=== PATIENT | female | born 1955 | race Caucasian/White ===

== ENCOUNTER → 2020-06-27 | Day surgery (SDC) | payer BC ==
--- NOTE | 2020-06-24 12:15 | PCM.SN.2 ---
- Free Text/Narrative Note: Right selective femoral nerve block at the adductor canal for post-procedure pain control under US guidance requested by Dr. Yepez. Time Out: 1115 Start: 1115 End: 112 Chart reviewed. Consent signed. Questions answered. Appropriate monitors applied. Time out performed. Right mid-shaft femur identified with ultrasound, scanning medially of femur, the femoral artery in the adductor canal visualized, and the femoral nerve located laterally to the artery. The skin was prepped lateral to the ultrasound probe with chlorahexadine times two. The 21ga 4 insulated block needle was inserted under direct ultrasound guidance into the adductor canal. 25mL of 0.5% ropivacaine with 1:200,000 epinephrine was injected circumferentially around the nerve with intermittent negative aspiration noted. Patient tolerated the procedure well. Sterile technique noted along with sterile gloves, mask, and sterile probe cover. See picture on progress note and vital signs on nurses notes. Block completed in PACU. Mukesh Ramirez CRNA
[~2020-06-27] MED LIST: Acetaminophen 325 MG Tab PO SCH; Cyclobenzaprine 10 MG Tab PO SCH; EPINEPHrine 1 MG/ML SDV ONE; Ketorolac 15 MG/ML SDV ONE; Lactated Ringers 1,000 ML IV SCH; Lactated Ringers 1,000 ML ONE; Lidocaine 1% 4 ML ONE; Lidocaine 1%/Sod Bicarbonate in NS 8.4% 1 ML Syringe IDERM PRN; Midazolam 1 MG/ML 2 ML SDV ONE; Morphine 8 MG, EPINEPHrine 0.3 MG, Cefuroxime 750 MG, Ketorolac 30 MG, Sodium Chloride ... ONE; Morphine 8 MG, EPINEPHrine 0.3 MG, Cefuroxime 750 MG, Ketorolac 30 MG, Sodium Chloride ... PRN; Ondansetron 4 MG/2 ML SDV IVPUSH PRN; Ondansetron 4 MG/2 ML SDV ONE; Pregabalin 25 MG Cap PO SCH; Propofol 200 MG/20 ML SDV ONE; Ropivacaine 0.5% 5 MG/ML 30 ML SDV ONE; Sodium Chloride 0.9% 10 ML Syringe FLUSH PRN; Triamcinolone Acetonide 40 MG/ML 1 ML SDV ONE; Vancomycin 1 GM SDV ONE; ceFAZolin 1 GM Vial ONE; fentaNYL 100 MCG/2 ML SDV ONE; oxyCODONE 5 MG Tab PO SCH; oxyCODONE ER 10 MG TAB.ER PO SCH
--- NOTE | 2020-06-27 07:21 | PCM.PREANE ---
Preanesthetic Assessment - Anesthesia/Transfusion/Family Hx Anesthesia History: Prior Anesthesia Without Reaction Family History of Anesthesia Reaction: No Transfusion History: No Prior Transfusion(s) - Review of Systems General: No Symptoms Pulmonary: No Symptoms Cardiovascular: No Symptoms Gastrointestinal: No Symptoms Neurological: No Symptoms Other: Reports: None - Physical Assessment NPO Status Date: 06/26/20 NPO Status Time: 20:00 Vital Signs: Last Vital Signs Temp 36.1 C 06/27/20 06:45 Pulse 65 06/27/20 06:45 Resp 16 06/27/20 06:45 BP 113/77 06/27/20 06:45 Pulse Ox 97 06/27/20 06:45 Height: 1.6 m Weight: 89.358 kg ASA Class: 3 Airway Class: Mallampati = 2 Dentition: Reports: Dentures (upper) Thyro-Mental Finger Breadths: 3 Mouth Opening Finger Breadths: 3 ROM/Head Extension: Full Lungs: Clear to Auscultation, Normal Respiratory Effort Cardiovascular: Irregular Rhythm - Lab Values: Laboratory Last Values MRSA (PCR) Negative 06/15/20 12:24 - Allergies Allergies/Adverse Reactions: Allergies Allergy/AdvReac Type Severity Reaction Status Date / Time codeine Allergy Itching Verified 06/24/20 16:43 Lmhkhgu-Gwc-Fkr Reductase Allergy Other Verified 06/24/20 16:43 Inhibitor - Anesthesia Plan Beta Anthony: Metoprolol Med Last Dose Date: 06/26/20 Med Last Dose Time: 19:00 - Acknowledgements Anesthesia Type Planned: Spinal Pt an Appropriate Candidate for the Planned Anesthesia: Yes Alternatives and Risks of Anesthesia Discussed w Pt/Guardian: Yes Pt/Guardian Understands and Agrees with Anesthesia Plan: Yes PreAnesthesia Questionnaire HEENT History: Reports: Impaired Vision, Other (See Below) Other HEENT History: wears glasses, has dentures Cardiovascular History: Reports: Afib, CAD, [place], Other (See Below) Other Cardiovascular History: ventricular dystolic dysfunction, mitral regurgitation, SC--2010 Respiratory History: Reports: Other (See Below) Other Respiratory History: snoring Gastrointestinal History: Reports: Diverticulosis, GERD, Hemorrhoids Genitourinary History: Reports: None [employer] History: Reports: None Musculoskeletal History: Reports: Osteoporosis Neurological History: Reports: Other (See Below) Other Neuro History: near syncope Psychiatric History: Reports: None Endocrine/Metabolic History: Reports: Obesity/BMI 30+, Vitamin D Deficiency, Other (See Below) Other Endocrine/Metabolic History: hyperparathyroidism Hematologic History: Reports: Iron Deficiency Immunologic History: Reports: None Oncologic (Cancer) History: Reports: None Dermatologic History: Reports: Other (See Below) Other Dermatologic History: rash to left foot - Past Surgical History Head Surgeries/Procedures: Reports: None HEENT Surgical History: Reports: Cataract Surgery, Tonsillectomy Cardiovascular Surgical History: Reports: None Respiratory Surgical History: Reports: None GI Surgical History: Reports: Bariatric Procedure, Colonoscopy Female Surgical History: Reports: Tubal Ligation Male Surgical History: Reports: None Endocrine Surgical History: Reports: None Neurological Surgical History: Reports: None Musculoskeletal Surgical History: Reports: Shoulder Surgery, Other (See Below) Other Musculoskeletal Surgeries/Procedures:: right rotator cuff repair Oncologic Surgical History: Reports: None Dermatological Surgical History: Reports: None - SUBSTANCE USE Tobacco Use Status *Q: Former Tobacco User Recreational Drug Use History: No - HOME MEDS Home Medications: Home Meds Alendronate Sodium [Fosamax] 70 mg PO SA 06/24/20 [History] Calcium Carbonate [Calcium] 600 mg PO DAILY 06/24/20 [History] Cholecalciferol (Vitamin D3) [Vitamin D3] 5,000 unit PO DAILY 06/24/20 [History] Ferrous Sulfate [Iron] 325 mg PO BID 06/24/20 [History] Furosemide [Lasix] 20 mg PO DAILY PRN 06/24/20 [History] Ipratropium [Atrovent 0.03% Nasal [place]] 1 dose SWATI DAILY 06/24/20 [History] Metoprolol Succinate 100 mg PO BID 06/24/20 [History] Multivitamin 1 tab PO DAILY 06/24/20 [History] Rivaroxaban [Xarelto] 20 mg PO DAILY 06/24/20 [History] Cyclobenzaprine [Flexeril] 10 mg PO BID PRN #20 tab 06/27/20 [Rx] oxyCODONE 5 - 10 mg PO Q4H PRN #60 tab 06/27/20 [Rx] traMADol [Ultram] 50 - 100 mg PO DAILY PRN #0 06/27/20 [Rx] - CURRENT (IN HOUSE) MEDS Current Meds: Current Medications Acetaminophen (Tylenol) 975 mg PO ONETIME AJ Stop: 06/27/20 12:00 Last Admin: 06/27/20 07:07 Dose: 975 mg Documented by: Morphine Sulfate 8 mg/Epinephrine HCl 0.3 mg/Cefuroxime Sodium 750 mg/Ketorolac Tromethamine 30 mg/Sodium Chloride 7.9 ml 0 mg .XX ASDIRECTED ONE Stop: 06/27/20 09:01 Lactated Ringer's (Ringers, Lactated) 1,000 mls @ 125 mls/hr IV ASDIRECTED AJ Stop: 06/27/20 23:00 Lidocaine/Sodium Bicarbonate (Buffered Lidocaine 1% In Ns 8.4%) 0.25 ml IDERM ONETIME PRN PRN Reason: Prior to IV Start Stop: 06/27/20 18:00 Oxycodone HCl (Oxycontin) 10 mg PO ONETIME AJ Stop: 06/27/20 12:00 Last Admin: 06/27/20 07:06 Dose: 10 mg Documented by: Pregabalin (Lyrica) 50 mg PO ONETIME AJ Stop: 06/27/20 12:00 Last Admin: 06/27/20 07:07 Dose: 50 mg Documented by: Sodium Chloride (Saline Flush) 10 ml FLUSH ASDIRECTED PRN PRN Reason: Keep Vein Open Stop: 06/27/20 18:00 Discontinued Medications Cefazolin Sodium (Ancef) Confirm Administered Dose 2 gm .ROUTE .STK-MED ONE Stop: 06/27/20 07:07 Epinephrine HCl (Adrenalin) Confirm Administered Dose 1 mg .ROUTE .STK-MED ONE Stop: 06/27/20 05:25 Fentanyl (Sublimaze) Confirm Administered Dose 100 mcg .ROUTE .STK-MED ONE Stop: 06/27/20 07:03 Lidocaine HCl (Xylocaine-Mpf 1%) Confirm Administered Dose 4 mls @ as directed .ROUTE .STK-MED ONE Stop: 06/27/20 07:02 Midazolam HCl (Versed 1 Mg/Ml) Confirm Administered Dose 2 mg .ROUTE .STK-MED ONE Stop: 06/27/20 07:03 Propofol (Diprivan 20 Ml) Confirm Administered Dose 200 mg .ROUTE .STK-MED ONE Stop: 06/27/20 07:02 Ropivacaine (Naropin 0.5%) Confirm Administered Dose 30 ml .ROUTE .STK-MED ONE Stop: 06/27/20 05:25
[2020-06-27] MEDS: Bupivacaine 0.25% 10 ML SDV ONE ×2 (09:35→10:18)
--- NOTE | 2020-06-27 10:26 | PCM.POSTAN ---
POST ANESTHESIA ASSESSMENT - MENTAL STATUS Mental Status: Alert, Oriented - VITAL SIGNS Vital Signs: Last Vital Signs Temp 36.1 C 06/27/20 06:45 Pulse 65 06/27/20 06:45 Resp 16 06/27/20 06:45 BP 113/77 06/27/20 06:45 Pulse Ox 97 06/27/20 06:45 - RESPIRATORY Respiratory Status: Respiratory Rate WNL, Airway Patent, O2 Saturation Stable - CARDIOVASCULAR CV Status: Pulse Rate WNL, Blood Pressure Stable - GASTROINTESTINAL GI Status: No Symptoms - PAIN Pain Score: 0 - POST OP HYDRATION Hydration Status: Adequate & Stable
[2020-06-27] MEDS: fentaNYL 100 MCG/2 ML SDV IVPUSH PRN ×2 (11:05→11:50)
--- NOTE | 2020-06-27 12:33 | PCM48HPAN ---
Post Anesthesia Note - EVALUATION WITHIN 48HRS OF ANESTHETIC Vital Signs in Normal Range: Yes Patient Participated in Evaluation: Yes Respiratory Function Stable: Yes Airway Patent: Yes Cardiovascular Function Stable: Yes Hydration Status Stable: Yes Pain Control Satisfactory: Yes Nausea and Vomiting Control Satisfactory: Yes Mental Status Recovered: Yes Vital Signs: Last Vital Signs Temp 35.9 C L 06/27/20 12:10 Pulse 79 06/27/20 12:10 Resp 16 06/27/20 12:10 BP 130/92 H 06/27/20 12:10 Pulse Ox 98 06/27/20 12:10
--- NOTE | 2020-07-05 15:34 | CR ---
PROCEDURE INFORMATION: Exam: XR Right Knee Exam date and time: 06/27/2020 10:19 AM Age: 65 years old Clinical indication: Device placement; Joint replacement hardware; Patient HX: Post op in pacu; Additional info: Prior images are not ours / we do not have a report on them TECHNIQUE: Imaging protocol: XR Right knee. Views: 1 or 2 views. COMPARISON: CR Bone Length Scanogram, Knee Standing AP Bi, Knee 3V Bi 05/17/2020 10:54 AM FINDINGS: Bones/joints: New right total knee arthroplasty. The components are normally aligned and there are no retained surgical instruments or acute fracture. Soft tissues: Expected adjacent soft tissue edema and gas. IMPRESSION: No evident complication following right total knee arthroplasty. Thank you for allowing us to participate in the care of your patient. Dictated and Authenticated by: Hima Delarosa MD 06/27/2020 1:56 PM Central Time ([place] & [place]) CONFIDENTIALITY STATEMENT This report is intended only for use by the referring physician, and only in accordance with law. If you received this in error, call [phone]. Page 1 of 1 MTDD
--- NOTE | 2020-07-05 16:57 | PCM.OPNOTE ---
- General Post-Op/Procedure Note Date of Surgery/Procedure: 06/27/20 Operative Procedure(s): right total knee arthroplasty with left knee corticosteriod injection Pre Op Diagnosis: bilateral knee osteoarthrosis Post-Op Diagnosis: Same Anesthesia Technique: Local, MAC, Spinal Primary Surgeon: Zach Yepez Anesthesia Provider: Maite Laurent Nutrition Partner: Urszula Grande Nutrition Partner: Leann Burnham EBL in mLs: 5 Complications: None Condition: Good Free Text/Narrative:: / 9mm 29x9
--- NOTE | 2020-07-05 17:24 | OR ---
DATE OF OPERATION: 06/27/2020 SURGEON: Zach Yepez MD OPERATION PERFORMED: Right total knee arthroplasty with left knee corticosteroid injection. PREOPERATIVE DIAGNOSIS: Bilateral knee osteoarthrosis. POSTOPERATIVE DIAGNOSIS: Bilateral knee osteoarthrosis. ANESTHESIA: Local MAC with spinal. ANESTHESIA PROVIDER: Maite Laurent CRNA ASSISTANTS: Urszula Grande PA-C, and Leann Burnham LPN ESTIMATED BLOOD LOSS: 5 mL. COMPLICATIONS: None. CONDITION: Stable. IMPLANTS: 1. Donny size 4 cemented PS femur. 2. [place] size 4 cemented [place] tibial base plate. 3. Donny size 4, 9 mm PS X3 polyethylene insert. 4. Donny size 29 x 9 mm cemented asymmetric patella. DESCRIPTION OF PROCEDURE: The patient was identified in the preop holding area. Proper site was marked and identified by the surgeon. The patient was taken back to the operating theater. After adequate anesthesia, the patient's right lower extremity had a nonsterile tourniquet applied and it was sterilely prepped and draped in the usual sterile fashion. OR time-out was performed. The patient received 2 g IV Ancef. At this time, the right lower extremity was exsanguinated. Tourniquet was insufflated to 300 mmHg. Standard medial parapatellar incision was made. Medial parapatellar arthrotomy was created. Deep fibers of the MCL were raised and anterior fat pad was resected. At this time, attention was turned to the patella. Patella measured 21, it was resected to a 13 for 29 x 9 mm patella. Drill holes were then drilled and found to be in adequate position. The drill was then drilled in the distal femur and the intramedullary distal femoral cutting guide was then placed. 8 mm was resected off the distal femur and was found to be an adequate resection. Sizing guide was placed. It was found to be a size 4 cemented PS femur that was shown on the implant record at the beginning of this dictation. The drill holes were drilled for the epicondylar axis using Whitesides line and epicondyles as reference. At this time, the 4-in-1 cutting block was placed. An anterior posterior and anterior and posterior chamfer cuts were then completed. Box cut was completed at this time. Attention was turned to the tibia. The posterior medial lateral retractors were placed. The extramedullary tibial guide was placed. It was placed in the old footprint of the ACL. It was aligned with the center of the ankle and 0 degrees of slope, 9 mm was then resected off the unaffected side. There was found to be an acceptable reduction. At this time, posterior osteophytes were removed along with medial and lateral meniscus. A trial implant was placed with a correct sized tibia that was mentioned at the beginning of the dictation. A [place] size 4, 9 mm PS X3 polyethylene insert was then placed. The patient's knee was brought through range of motion. The patella was tracking centrally and was stable to varus and valgus stress. Alignment was found to be roughly at 0 degrees. The tibia was stamped and drilled in proper rotation. The universal tibial base plate was impacted in place. Next, the [place] size 4 cemented PS femur impacted into place and the Donny size 4, 9 mm PS X3 polyethylene insert was placed. The patient's knee was brought into full extension. Excess cement was removed. The patella was then cemented in place at this time. Irricept was irrigated through the knee along with 1 L of pulse lavage irrigation with Ancef. Periarticular injection was then completed. The patient's knee was brought through a range of motion. Once the cement had time to set up and it was found to be stable to varus valgus stress, the patella was tracking centrally with full range of motion. At this time, a #2 barbed suture was used for closure of the medial parapatellar arthrotomy. Topical tranexamic acid was placed. 2-0 Vicryl was used subcutaneously, Prineo was used for the skin. The patient tolerated the procedure well and was sent to the PACU in stable condition. After this was completed, under sterile technique 2 mL of 40 mg Kenalog and 4 mL of 0.25% Marcaine were injected to the left knee, and the patient tolerated all procedures well. MMODAL /[id number] JEROME
== END | disposition home or self-care (01) ==
LOC: JD.SDS 06:41
PROVIDERS: ATTEND Orthopaedic Surgery
DX: M17.0 Bilateral primary osteoarthritis of knee (principal); M19.012 Primary osteoarthritis, left shoulder; G89.29 Other chronic pain; I25.10 Atherosclerotic heart disease of native coronary artery without angina pectoris; I48.0 Paroxysmal atrial fibrillation; I51.9 Heart disease, unspecified; M81.0 Age-related osteoporosis without current pathological fracture; E55.9 Vitamin D deficiency, unspecified; I25.2 Old myocardial infarction; Z88.5 Allergy status to narcotic agent; Z88.8 Allergy status to other drugs, medicaments and biological substances; Z87.891 Personal history of nicotine dependence; Z79.899 Other long term (current) drug therapy; Z79.01 Long term (current) use of anticoagulants; Z80.0 Family history of malignant neoplasm of digestive organs; Z68.34 Body mass index [BMI] 34.0-34.9, adult
CPT/HCPCS: 20610; 27447; 36415; 73560; 85610; 85730; 87641; 97110; 97116; 97162; 97165; A9270; C1713; C1776; J0171; J0690; J0697; J1885; J2001; J2250; J2270; J2405; J2704; J2795; J3010; J3301; J3370; J3490; J7120; 01402; 64450

== ENCOUNTER 2020-09-12 06:15 | Day surgery (SDC) | payer BC ==
--- NOTE | 2020-09-11 17:19 | PCM.PREANE ---
Preanesthetic Assessment - Procedure Proposed Procedure: Left Total Knee Arthroplasty - Anesthesia/Transfusion/Family Hx Anesthesia History: Prior Anesthesia Without Reaction Family History of Anesthesia Reaction: No Transfusion History: No Prior Transfusion(s) Intubation History: Unknown - Review of Systems General: No Symptoms Pulmonary: No Symptoms (Former smoker: quit/1986/ ETOH: rarely) Cardiovascular: No Symptoms (CAD/ history of HI in 2010, Chronic AF on Xarelto (last dose): 09/09/2020 Chronic left ventricular systolic dysfunction, tricuspid valve insufficiency), Palpitations (A-fib), Lightheadedness Gastrointestinal: No Symptoms (History of gastric bypass-no statins) Neurological: No Symptoms (motion sickness, history of vertigo/), Tingling (left arm due to bad shoulder) Other: Reports: None, Easy Bruising (on Xarelto for chronic AF) - Physical Assessment NPO Status Date: 09/11/20 NPO Status Time: 19:00 Vital Signs: HR:86 Sat:97% B/P:117/78 Temp:97.5 Resp:20 Height: 1.6 m Weight: 82 kg ASA Class: 3 Mental Status: Alert & Oriented x3 Airway Class: Mallampati = 2 Dentition: Reports: Normal Dentition, Dentures (upper), Caries Thyro-Mental Finger Breadths: 3 Mouth Opening Finger Breadths: 3 ROM/Head Extension: Full Lungs: Clear to Auscultation, Normal Respiratory Effort Cardiovascular: Regular Rate, Regular Rhythm - Lab Values: Laboratory Last Values MRSA (PCR) Negative 08/31/20 08:47 All labs reviewed and noted and within acceptable ranges to proceed with scheduled procedure. - Imaging/EKG Impressions: CXR: Normal EKG: Atrial Fibrillation rate= 83 Echocardiogram:EF= 50-55%, Severe Biatrial Dilation - Allergies Allergies/Adverse Reactions: Allergies Allergy/AdvReac Type Severity Reaction Status Date / Time codeine Allergy Itching Verified 09/08/20 14:00 Jtsqtro-Bkv-Pro Reductase Allergy Other Verified 09/08/20 14:00 Inhibitor - Anesthesia Plan Pre-Op Medication Ordered: Beta Anthnoy, Other (Oral preoperative medications lyrica, tylenol, oxycodone @0625) Beta Anthony: Metoprolol Med Last Dose Date: 09/11/20 Med Last Dose Time: 19:00 - Acknowledgements Anesthesia Type Planned: Spinal (Left Adductor Canal block under US guidance for post operative pain control requested by Dr. Yepez.) Pt an Appropriate Candidate for the Planned Anesthesia: Yes Alternatives and Risks of Anesthesia Discussed w Pt/Guardian: Yes Pt/Guardian Understands and Agrees with Anesthesia Plan: Yes PreAnesthesia Questionnaire HEENT History: Reports: Impaired Vision, Other (See Below) Other HEENT History: wears glasses, has dentures Cardiovascular History: Reports: Afib, CAD, HI, Other (See Below) Other Cardiovascular History: ventricular dystolic dysfunction, mitral regurgitation, HI- Respiratory History: Reports: Other (See Below) Other Respiratory History: snoring Gastrointestinal History: Reports: Diverticulosis, GERD, Hemorrhoids Genitourinary History: Reports: None [employer] History: Reports: None Musculoskeletal History: Reports: Osteoporosis Neurological History: Reports: Other (See Below) Other Neuro History: near syncope Psychiatric History: Reports: None Endocrine/Metabolic History: Reports: Obesity/BMI 30+, Vitamin D Deficiency, Other (See Below) Other Endocrine/Metabolic History: hyperparathyroidism Hematologic History: Reports: Iron Deficiency Immunologic History: Reports: None Oncologic (Cancer) History: Reports: None Dermatologic History: Reports: Other (See Below) Other Dermatologic History: rash to left foot - Past Surgical History Head Surgeries/Procedures: Reports: None HEENT Surgical History: Reports: Cataract Surgery, Tonsillectomy Cardiovascular Surgical History: Reports: None Respiratory Surgical History: Reports: None GI Surgical History: Reports: Bariatric Procedure, Colonoscopy Female Surgical History: Reports: Tubal Ligation Male Surgical History: Reports: None Endocrine Surgical History: Reports: None Neurological Surgical History: Reports: None Musculoskeletal Surgical History: Reports: Knee Replacement, Shoulder Surgery, Other (See Below) Other Musculoskeletal Surgeries/Procedures:: right rotator cuff repair Oncologic Surgical History: Reports: None Dermatological Surgical History: Reports: None - SUBSTANCE USE Tobacco Use Status *Q: Former Tobacco User Recreational Drug Use History: No - HOME MEDS Home Medications: Home Meds Alendronate Sodium [Fosamax] 70 mg PO SA 06/24/20 [History] Calcium Carbonate [Calcium] 600 mg PO DAILY 06/24/20 [History] Cholecalciferol (Vitamin D3) [Vitamin D3] 5,000 unit PO DAILY 06/24/20 [History] Ferrous Sulfate [Iron] 325 mg PO BID 06/24/20 [History] Furosemide [Lasix] 20 mg PO DAILY PRN 06/24/20 [History] Ipratropium [Atrovent 0.03% Nasal [place]] 1 dose SWATI DAILY 06/24/20 [History] Metoprolol Succinate 100 mg PO BID 06/24/20 [History] Multivitamin 1 tab PO DAILY 06/24/20 [History] Rivaroxaban [Xarelto] 20 mg PO DAILY 06/24/20 [History] traMADol [Ultram] 50 - 100 mg PO DAILY PRN #0 06/27/20 [Rx] Cyclobenzaprine [Flexeril] 10 mg PO BID PRN #20 tab 09/12/20 [Rx] oxyCODONE 5 - 10 mg PO Q4H PRN #60 tab 09/12/20 [Rx] - CURRENT (IN HOUSE) MEDS Current Meds: Current Medications Acetaminophen (Tylenol) 975 mg PO ONETIME AJ Stop: 09/12/20 13:00 Morphine Sulfate 8 mg/Epinephrine HCl 0.3 mg/Cefuroxime Sodium 750 mg/Ketorolac Tromethamine 30 mg/Sodium Chloride 7.9 ml 0 mg .XX ONETIME ONE Stop: 09/12/20 08:31 Lactated Ringer's (Ringers, Lactated) 1,000 mls @ 125 mls/hr IV ASDIRECTED AJ Stop: 09/12/20 23:00 Lidocaine/Sodium Bicarbonate (Buffered Lidocaine 1% In Ns 8.4%) 0.25 ml IDERM ONETIME PRN PRN Reason: Prior to IV Start Stop: 09/12/20 18:00 Oxycodone HCl (Oxycontin) 10 mg PO ONETIME AJ Stop: 09/12/20 13:00 Pregabalin (Lyrica) 50 mg PO ONETIME AJ Stop: 09/12/20 13:00 Sodium Chloride (Saline Flush) 10 ml FLUSH ASDIRECTED PRN PRN Reason: Keep Vein Open Stop: 09/12/20 18:00
--- NOTE | 2020-09-11 17:29 | PCM.SN.2 ---
- Free Text/Narrative Note: Left selective femoral nerve block at the adductor canal for post-procedure pain control under US guidance requested by Dr. Yepez. Time Out: 853 Start: 853 End: 857 Chart reviewed. Consent signed. Questions answered. Appropriate monitors applied. Time out performed. Left mid-shaft femur identified with ultrasound, scanning medially of femur, the femoral artery in the adductor canal visualized, and the femoral nerve located laterally to the artery. The skin was prepped lateral to the ultrasound probe with chlorahexadine times two. The 21ga 4 insulated block needle was inserted under direct ultrasound guidance into the adductor canal. 20mL of 0.5% ropivacaine with 1:200,000 epinephrine was injected circumferentially around the nerve with intermittent negative aspiration noted. Patient tolerated the procedure well. Sterile technique noted along with sterile gloves, mask, and sterile probe cover. See picture on progress note and vital signs on nurses notes. Block completed in PACU. Danielle Ramirez CRNA
[~2020-09-12 06:15] MED LIST changes: -Cyclobenzaprine 10 MG Tab PO SCH; -Ketorolac 15 MG/ML SDV ONE; -Lactated Ringers 1,000 ML ONE; -Lidocaine 1% 4 ML ONE; -Midazolam 1 MG/ML 2 ML SDV ONE; -Morphine 8 MG, EPINEPHrine 0.3 MG, Cefuroxime 750 MG, Ketorolac 30 MG, Sodium Chloride ... ONE; -Morphine 8 MG, EPINEPHrine 0.3 MG, Cefuroxime 750 MG, Ketorolac 30 MG, Sodium Chloride ... PRN; -Ondansetron 4 MG/2 ML SDV IVPUSH PRN; -Ondansetron 4 MG/2 ML SDV ONE; -Propofol 200 MG/20 ML SDV ONE; -Triamcinolone Acetonide 40 MG/ML 1 ML SDV ONE; -Vancomycin 1 GM SDV ONE; -ceFAZolin 1 GM Vial ONE; -fentaNYL 100 MCG/2 ML SDV ONE; -oxyCODONE 5 MG Tab PO SCH
[2020-09-12] MEDS ORDERED: ceFAZolin 1 GM Vial ONE (06:23)
[2020-09-12] MEDS ORDERED: Dexamethasone 4 MG/ML 5 ML MDV ONE (06:23)
[2020-09-12] MEDS ORDERED: Ondansetron 4 MG/2 ML SDV ONE (06:23)
[2020-09-12] MEDS ORDERED: Ketorolac 30 MG/ML SDV ONE (06:23)
[2020-09-12] MEDS ORDERED: Lactated Ringers 1,000 ML ONE (06:23)
[2020-09-12] MEDS ORDERED: Lidocaine 1% 4 ML ONE (06:23)
[2020-09-12] MEDS ORDERED: Midazolam 1 MG/ML 2 ML SDV ONE (06:24)
[2020-09-12] MEDS ORDERED: Propofol 200 MG/20 ML SDV ONE (06:24)
[2020-09-12] MEDS ORDERED: fentaNYL 100 MCG/2 ML SDV ONE (06:24)
[2020-09-12] MEDS ORDERED: Ketamine 500 mg/10 ML MDV ONE (06:25)
[2020-09-12] MEDS ORDERED: Vancomycin 1 GM SDV ONE (06:28)
[2020-09-12] MEDS ORDERED: Bupivacaine 0.25% 10 ML SDV ONE (06:28)
[2020-09-12] MEDS ORDERED: fentaNYL 100 MCG/2 ML SDV IVPUSH PRN (07:27)
[2020-09-12] MEDS ORDERED: diphenhydrAMINE 50 MG/ML SDV IVPUSH PRN (07:27)
[2020-09-12] MEDS ORDERED: ePHEDrine 50 MG/ML SDV IVPUSH PRN (07:27)
[2020-09-12] MEDS ORDERED: Ondansetron 4 MG/2 ML SDV IVPUSH PRN (07:27)
[2020-09-12] MEDS ORDERED: HYDROmorphone 0.5 MG/0.5 ML Syringe IVPUSH PRN (07:28)
[2020-09-12] MEDS ORDERED: Albuterol 0.083% 2.5 MG/3 ML Neb Soln NEB PRN (07:28)
[2020-09-12] MEDS ORDERED: Morphine 8 MG, EPINEPHrine 0.3 MG, Cefuroxime 750 MG, Ketorolac 30 MG, Sodium Chloride ... ONE ×5 (08:30)
--- NOTE | 2020-09-12 08:53 | PCM.POSTAN ---
POST ANESTHESIA ASSESSMENT - MENTAL STATUS Mental Status: Alert - VITAL SIGNS Vital Signs: Last Vital Signs Temp 97.3 09/12/20 0845 Pulse 78 09/12/20 0845 Resp 11 09/12/20 0845 BP 89/57 09/12/20 0845 Pulse Ox 94% 09/12/20 0845 - RESPIRATORY Respiratory Status: Respiratory Rate WNL, Airway Patent, O2 Saturation Stable, Supplemental Oxygen - CARDIOVASCULAR CV Status: Pulse Rate WNL, Blood Pressure Stable - GASTROINTESTINAL GI Status: No Symptoms - POST OP HYDRATION Hydration Status: Adequate & Stable
--- NOTE | 2020-09-12 09:37 | CR ---
Left knee: Portable AP and lateral views of the left knee were obtained. Comparison: No prior study. Knee prosthesis is seen. Components are aligned. Soft tissue air is seen. No acute bony abnormality is appreciated. Impression: 1. Satisfactory postop radiographic appearance of recently placed left knee prosthesis. Diagnostic code #2
--- NOTE | 2020-09-12 09:59 | PCM48HPAN ---
Post Anesthesia Note - EVALUATION WITHIN 48HRS OF ANESTHETIC Vital Signs in Normal Range: Yes Patient Participated in Evaluation: Yes Respiratory Function Stable: Yes Airway Patent: Yes Cardiovascular Function Stable: Yes Hydration Status Stable: Yes Pain Control Satisfactory: Yes Nausea and Vomiting Control Satisfactory: Yes Mental Status Recovered: Yes Vital Signs: Last Vital Signs Temp 35.9 C L 09/12/20 09:30 Pulse 77 09/12/20 09:30 Resp 14 09/12/20 09:30 BP 97/66 09/12/20 09:30 Pulse Ox 99 09/12/20 09:30
[2020-09-12] MEDS ORDERED: oxyCODONE 5 MG Tab PO PRN (11:28)
--- NOTE | 2020-09-27 14:35 | PCM.OPNOTE ---
- General Post-Op/Procedure Note Date of Surgery/Procedure: 09/12/20 Operative Procedure(s): left total knee arthroplasty Pre Op Diagnosis: left knee osteoarthrosis Post-Op Diagnosis: Same Anesthesia Technique: Local, MAC, Spinal Primary Surgeon: Zach Yepez Anesthesia Provider: Danielle Ramirez Mill Worker: Urszula Grande Mill Worker: Leann Burnham EBAni in mLs: 5 Complications: None Condition: Good Free Text/Narrative:: 4 4 9mm 29x9 cemented
--- NOTE | 2020-09-27 15:10 | OR ---
DATE OF OPERATION: 09/12/2020 SURGEON: Zach Yepez MD OPERATION PERFORMED: Left total knee arthroplasty. PREOPERATIVE DIAGNOSIS: Left knee osteoarthrosis. POSTOPERATIVE DIAGNOSIS: Left knee osteoarthrosis. ANESTHESIA: Local MAC with spinal. ANESTHESIA PROVIDER: Danielle Ramirez CRNA WIRE REPAIRER: Urszula Grande PA-C, and Leann Burnham LPN ESTIMATED BLOOD LOSS: 5 mL. COMPLICATIONS: None. CONDITION: Stable. IMPLANTS: 1. Oxford size 4 cemented PS femur. 2. Donny size 4 cemented Peridot tibial base plate. 3. Donny size 4, 9 mm PS X3 polyethylene. 4. Donny size 29 x 9 mm cemented asymmetric patella. DESCRIPTION OF PROCEDURE: The patient was identified in the preop holding area. Proper site was marked and identified by the surgeon. The patient was taken back to the operating theater. After adequate anesthesia, the patient's left lower extremity had a nonsterile tourniquet applied and it was sterilely prepped and draped in the usual sterile fashion. OR time-out was performed. The patient received 2 g IV Ancef. At this time, the left lower extremity was exsanguinated. Tourniquet was insufflated to 300 mmHg. Standard medial parapatellar incision was made. Medial parapatellar arthrotomy was created. Deep fibers of the MCL were raised and anterior fat pad was resected. At this time, attention was turned to the patella. Patella measured a 21, it was resected to a 13 for a 29 x 9 mm patella. Drill holes were then drilled and found to be in adequate position. The drill was then drilled in the distal femur and the intramedullary distal femoral cutting guide was then placed. 8 mm was resected off the distal femur and was found to be an adequate resection. Sizing guide was placed. It was found to be a size 4 cemented PS femur that was shown on the implant record at the beginning of this dictation. The drill holes were drilled for the epicondylar axis using Whitesides line and epicondyles as reference. At this time, the 4-in-1 cutting block was placed. An anterior posterior and anterior and posterior chamfer cuts were then completed. Box cut was completed at this time. Attention was turned to the tibia. The posterior medial lateral retractors were placed. The extramedullary tibial guide was placed. It was placed in the old footprint of the ACL. It was aligned with the center of the ankle and 0 degrees of slope, 9 mm was then resected off the unaffected side. There was found to be an acceptable reduction. At this time, posterior osteophytes were removed along with medial and lateral meniscus. A trial implant was placed with a correct sized tibia that was mentioned at the beginning of the dictation. A Oxford size 4, 9 mm PS X3 polyethylene insert was then placed. The patient's knee was brought through range of motion. The patella was tracking centrally and was stable to varus and valgus stress. Alignment was found to be roughly at 0 degrees. The tibia was stamped and drilled in proper rotation. The universal tibial base plate was impacted in place. Next, the Donny size 4 cemented PS femur impacted into place and the Donny size 4, 9 mm PS X3 polyethylene insert was placed. The patient's knee was brought into full extension. The patella was then cemented in place at this time. One liter Irrisept solution was irrigated through the knee along with 1 L of pulse lavage irrigation with Ancef. Periarticular injection was then completed. The patient's knee was brought through a range of motion. Once the cement had time to set up and it was found to be stable to varus valgus stress, the patella was tracking centrally with full range of motion. At this time, a #2 barbed suture was used for closure of the medial parapatellar arthrotomy. Topical tranexamic acid was placed. 2-0 Vicryl was used subcutaneously, Prineo was used for the skin. The patient tolerated the procedure well and was sent to the PACU in stable condition. MMODAL /[id number] JEROME
== END 2020-09-12 14:17 | disposition home or self-care (01) ==
LOC: JD.SDS 06:15
PROVIDERS: ATTEND Orthopaedic Surgery
DX: M17.12 Unilateral primary osteoarthritis, left knee (principal); G89.29 Other chronic pain; I25.10 Atherosclerotic heart disease of native coronary artery without angina pectoris; I48.21 Permanent atrial fibrillation; M81.0 Age-related osteoporosis without current pathological fracture; E55.9 Vitamin D deficiency, unspecified; I25.2 Old myocardial infarction; E61.1 Iron deficiency; E66.01 Morbid (severe) obesity due to excess calories; G89.18 Other acute postprocedural pain; Z98.84 Bariatric surgery status; Z79.899 Other long term (current) drug therapy; Z88.5 Allergy status to narcotic agent; Z88.8 Allergy status to other drugs, medicaments and biological substances; Z98.890 Other specified postprocedural states; Z87.891 Personal history of nicotine dependence; Z68.32 Body mass index [BMI] 32.0-32.9, adult
CPT/HCPCS: 27447; 36415; 73560; 85610; 85730; 87641; 97110; 97162; 97165; 97530; A9270; C1713; C1776; J0171; J0690; J0697; J1100; J1885; J2001; J2250; J2270; J2370; J2405; J2704; J2795; J3010; J3370; J3490; J7120; 01402; 64450

== ENCOUNTER → 2020-12-29 | Day surgery (SDC) | payer BC ==
[~2020-12-29] MED LIST changes: -Acetaminophen 325 MG Tab PO SCH; +Bupivacaine 0.25% 10 ML SDV ONE; +Dexamethasone 4 MG/ML 5 ML MDV ONE; +EPINEPHrine 1 MG/ML 30 ML MDV SCH; +Lactated Ringers 0 ML ONE; +Lidocaine 1% 0 ML ONE; +Midazolam 1 MG/ML 2 ML SDV ONE; +Ondansetron 4 MG/2 ML SDV ONE; -Pregabalin 25 MG Cap PO SCH; +Propofol 200 MG/20 ML SDV ONE; +ceFAZolin 1 GM Vial ONE; +fentaNYL 100 MCG/2 ML SDV ONE; -oxyCODONE ER 10 MG TAB.ER PO SCH
--- NOTE | 2020-12-29 08:08 | PCM.PREANE ---
Preanesthetic Assessment - Procedure Proposed Procedure: Left Shoulder Rotator Cuff Repair - Anesthesia/Transfusion/Family Hx Anesthesia History: Prior Anesthesia Without Reaction Family History of Anesthesia Reaction: No Transfusion History: No Prior Transfusion(s) Intubation History: Unknown - Review of Systems General: No Symptoms Pulmonary: No Symptoms Cardiovascular: Palpitations, Lightheadedness, Other (Myocardial Infarction in 2011, not due to blockage due to atrial fibrillation with uncontrolled rate, has been controled with medication since this time. Known CAD. ECHO EF 50-55% with severe biatrial dilation. Follows closely with cardiology, every 6 month apointments with ECHO. ) Gastrointestinal: No Symptoms (Gastric Bypass in 1999. ) Neurological: No Symptoms, Tingling (Left arm due to shoulder.) Other: Reports: Easy Bleeding, Easy Bruising (Anticoagulated on Xarelto) - Physical Assessment NPO Status Date: 12/28/20 NPO Status Time: 22:00 Vital Signs: 97.8F 88-100 16 98% 128/71 Weight: 82 kg ASA Class: 3 Mental Status: Alert & Oriented x3 Dentition: Reports: Dentures Thyro-Mental Finger Breadths: 2 Mouth Opening Finger Breadths: 3 ROM/Head Extension: Full Lungs: Clear to Auscultation, Normal Respiratory Effort Cardiovascular: Irregular Rhythm, Murmurs - Lab Values: Laboratory Last Values MRSA (PCR) Negative 12/21/20 10:47 - Allergies Allergies/Adverse Reactions: Allergies Allergy/AdvReac Type Severity Reaction Status Date / Time codeine Allergy Itching Verified 12/28/20 17:07 Nmlhxub-Zzv-Fbl Reductase Allergy Other Verified 12/28/20 17:07 Inhibitor - Anesthesia Plan Beta Anthony: Metoprolol Med Last Dose Date: 12/25/20 Med Last Dose Time: 19:00 - Acknowledgements Anesthesia Type Planned: General Anesthesia, Regional Block Pt an Appropriate Candidate for the Planned Anesthesia: No Alternatives and Risks of Anesthesia Discussed w Pt/Guardian: Yes Pt/Guardian Understands and Agrees with Anesthesia Plan: Yes Additional Comments: Dacia presented for surgery this morning. She has stopped taking her metoprolol on 12/25/20. She has a hard time taking medications on an empty stomach due to her gastric bypass surgery. She does acknowledge that she was told to continue her metoprolol. Following a significant discussion with Dr. Yepez, FEDERICO Sullivan, and Nicholas Moscoso CRNA the decision to post pone surgery due to increased cardiac risk due to sudden withdrawal from beta anthony therapy. Dacia and her are concerned with rescheduling as her is starting a new job and leaving on next week. Dacia does verbalize understanding although is upset due to the inconvenience to her . Dr. Yepez's office will call to reschedule. Multiple apologies offered for the inconvenience. PreAnesthesia Questionnaire HEENT History: Reports: Impaired Vision, Other (See Below) Other HEENT History: wears glasses, has dentures Cardiovascular History: Reports: Afib, CAD, [place], Other (See Below) Other Cardiovascular History: ventricular dystolic dysfunction, mitral regurgitation, [place]- Respiratory History: Reports: Other (See Below) Other Respiratory History: snoring Gastrointestinal History: Reports: Diverticulosis, GERD, Hemorrhoids Genitourinary History: Reports: None EXTERIOR INTERIOR SPECIALIST History: Reports: None Musculoskeletal History: Reports: Osteoporosis Neurological History: Reports: Other (See Below) Other Neuro History: near syncope Psychiatric History: Reports: None Endocrine/Metabolic History: Reports: Obesity/BMI 30+, Vitamin D Deficiency, Other (See Below) Other Endocrine/Metabolic History: hyperparathyroidism Hematologic History: Reports: Iron Deficiency Immunologic History: Reports: None Oncologic (Cancer) History: Reports: None Dermatologic History: Reports: Other (See Below) Other Dermatologic History: rash to left foot - Infectious Disease History Infectious Disease History: Reports: None - Past Surgical History Head Surgeries/Procedures: Reports: None HEENT Surgical History: Reports: Cataract Surgery, Tonsillectomy Cardiovascular Surgical History: Reports: None Respiratory Surgical History: Reports: None GI Surgical History: Reports: Bariatric Procedure, Colonoscopy Female Surgical History: Reports: Tubal Ligation Male Surgical History: Reports: None Endocrine Surgical History: Reports: None Neurological Surgical History: Reports: None Musculoskeletal Surgical History: Reports: Knee Replacement, Shoulder Surgery, Other (See Below) Other Musculoskeletal Surgeries/Procedures:: right rotator cuff repair, bilateral knee replacements, right shoulder replacement Oncologic Surgical History: Reports: None Dermatological Surgical History: Reports: None - SUBSTANCE USE Tobacco Use Status *Q: Former Tobacco User Recreational Drug Use History: No - HOME MEDS Home Medications: Home Meds Alendronate Sodium [Fosamax] 70 mg PO SA 06/24/20 [History] Calcium Carbonate [Calcium] 600 mg PO DAILY 06/24/20 [History] Ferrous Sulfate [Iron] 325 mg PO BID 06/24/20 [History] Furosemide [Lasix] 20 mg PO DAILY PRN 06/24/20 [History] Ipratropium [Atrovent 0.03% Nasal Strum] 1 dose SWATI TID 06/24/20 [History] Metoprolol Succinate 100 mg PO BID 06/24/20 [History] Multivitamin 1 tab PO DAILY 06/24/20 [History] Rivaroxaban [Xarelto] 20 mg PO DAILY 06/24/20 [History] traMADol [Ultram] 50 - 100 mg PO DAILY PRN #0 06/27/20 [Rx] Cyanocobalamin (Vitamin B-12) [Vitamin B-12] 1,000 mcg PO DAILY 12/28/20 [History] Acetaminophen/HYDROcodone [[place] 325-5 MG] 1 - 2 tab PO Q6H PRN #40 tablet 12/29/20 [Rx] Cyclobenzaprine [Flexeril] 10 mg PO BID PRN #20 tab 12/29/20 [Rx] - CURRENT (IN HOUSE) MEDS Current Meds: Current Medications Epinephrine HCl (Epinephrine 1 Mg/Ml 30 Ml Mdv) 3 mg .XX ONETIME AJ Stop: 12/29/20 13:00 Lactated Ringer's (Ringers, Lactated) 1,000 mls @ 125 mls/hr IV ASDIRECTED AJ Stop: 12/29/20 23:00 Last Admin: 12/29/20 07:20 Dose: 125 mls/hr Documented by: Lidocaine/Sodium Bicarbonate (Lidocaine 1%/Sod Bicarbonate In Ns 8.4% 1 Ml Syringe) 0.25 ml IDERM ONETIME PRN PRN Reason: Prior to IV Start Stop: 12/29/20 18:00 Sodium Chloride (Sodium Chloride 0.9% 10 Ml Syringe) 10 ml FLUSH ASDIRECTED PRN PRN Reason: Keep Vein Open Stop: 12/29/20 18:00 Discontinued Medications Bupivacaine HCl (Bupivacaine 0.25% 10 Ml Sdv) Confirm Administered Dose 20 ml .ROUTE .STK-MED ONE Stop: 12/29/20 07:40 Cefazolin Sodium (Cefazolin 1 Gm Vial) Confirm Administered Dose 2 gm .ROUTE .STK-MED ONE Stop: 12/29/20 07:05 Dexamethasone (Dexamethasone 4 Mg/Ml 5 Ml Mdv) Confirm Administered Dose 20 mg .ROUTE .ST-MED ONE Stop: 12/29/20 07:07 Epinephrine HCl (Epinephrine 1 Mg/Ml Sdv) Confirm Administered Dose 1 mg .ROUTE .ST-MED ONE Stop: 12/29/20 07:02 Fentanyl (Fentanyl 100 Mcg/2 Ml Sdv) Confirm Administered Dose 100 mcg .ROUTE .[facility]-MED ONE Stop: 12/29/20 07:06 Lactated Ringer's (Ringers, Lactated) Confirm Administered Dose 1,000 mls @ as directed .ROUTE .[facility] ONE Stop: 12/29/20 07:05 Lidocaine HCl (Xylocaine-Mpf 1%) Confirm Administered Dose 4 mls @ as directed .ROUTE .ST-MED ONE Stop: 12/29/20 07:07 Lidocaine HCl (Xylocaine-Mpf 1%) Confirm Administered Dose 2 mls @ as directed .ROUTE .[facility] ONE Stop: 12/29/20 07:11 Midazolam HCl (Midazolam 1 Mg/Ml 2 Ml Sdv) Confirm Administered Dose 2 mg .ROUTE .ST-MED ONE Stop: 12/29/20 07:06 Ondansetron HCl (Ondansetron 4 Mg/2 Ml Sdv) Confirm Administered Dose 4 mg .ROUTE .ST-MED ONE Stop: 12/29/20 07:05 Propofol (Propofol 200 Mg/20 Ml Sdv) Confirm Administered Dose 400 mg .ROUTE .ST-MED ONE Stop: 12/29/20 07:06 Ropivacaine (Ropivacaine 0.5% 5 Mg/Ml 30 Ml Sdv) Confirm Administered Dose 30 ml .ROUTE .[facility]-MED ONE Stop: 12/29/20 07:03
== END | disposition home or self-care (01) ==
LOC: JD.SDS 06:58
PROVIDERS: ATTEND Orthopaedic Surgery
DX: M75.102 Unspecified rotator cuff tear or rupture of left shoulder, not specified as traumatic (principal); I25.10 Atherosclerotic heart disease of native coronary artery without angina pectoris; I25.2 Old myocardial infarction; I48.91 Unspecified atrial fibrillation; E66.9 Obesity, unspecified; E21.3 Hyperparathyroidism, unspecified; E55.9 Vitamin D deficiency, unspecified; Z88.5 Allergy status to narcotic agent; Z88.8 Allergy status to other drugs, medicaments and biological substances; Z98.890 Other specified postprocedural states; Z87.891 Personal history of nicotine dependence; Z79.899 Other long term (current) drug therapy; Z68.32 Body mass index [BMI] 32.0-32.9, adult
CPT/HCPCS: 87641; J7120; J0171; J0690; J1100; J2250; J2405; J2704; J2795; J3010; J3490

== ENCOUNTER 2021-01-05 08:46 | Day surgery (SDC) | payer BC ==
[~2021-01-05 08:46] MED LIST changes: -Bupivacaine 0.25% 10 ML SDV ONE; -Dexamethasone 4 MG/ML 5 ML MDV ONE; +EPINEPHrine 1 MG/ML 30 ML MDV IRR SCH; -EPINEPHrine 1 MG/ML 30 ML MDV SCH; -Lactated Ringers 0 ML ONE; +Lactated Ringers 1,000 ML ONE; -Lidocaine 1% 0 ML ONE; +Lidocaine 1% 4 ML ONE; +Rocuronium 50 MG/5 ML Vial ONE
[2021-01-05] MEDS ORDERED: Lidocaine 1% 2 ML ONE (08:47)
--- NOTE | 2021-01-05 08:59 | PCM.PREANE ---
Preanesthetic Assessment - Procedure Proposed Procedure: Left shoulder video arthroscopy - Anesthesia/Transfusion/Family Hx Anesthesia History: Prior Anesthesia Without Reaction Family History of Anesthesia Reaction: No Transfusion History: No Prior Transfusion(s) Intubation History: Unknown - Review of Systems General: No Symptoms Pulmonary: No Symptoms Cardiovascular: No Symptoms Gastrointestinal: No Symptoms Neurological: No Symptoms Other: Reports: Thyroid Problems (in H and P it says hyperparathyroid patient denies), Neck Pain - Physical Assessment NPO Status Date: 01/04/21 NPO Status Time: 00:00 Height: 1.6 m Weight: 81.6 kg ASA Class: 3 Mental Status: Alert & Oriented x3 Airway Class: Mallampati = 2 Dentition: Reports: Dentures, Missing Tooth/Teeth Thyro-Mental Finger Breadths: 3 Mouth Opening Finger Breadths: 3 ROM/Head Extension: Full Lungs: Clear to Auscultation, Normal Respiratory Effort Cardiovascular: Regular Rate, Regular Rhythm - Imaging/EKG Impressions: EKG - Allergies Allergies/Adverse Reactions: Allergies Allergy/AdvReac Type Severity Reaction Status Date / Time codeine Allergy Itching Verified 01/04/21 14:36 Trvpsfe-Tnw-Ntg Reductase Allergy Other Verified 01/04/21 14:36 Inhibitor - Blood Blood Available: No Product(s) Available: None - Anesthesia Plan Pre-Op Medication Ordered: Beta Anthony Beta Anthony: Metoprolol Med Last Dose Date: 01/05/21 Med Last Dose Time: 06:15 - Acknowledgements Anesthesia Type Planned: General Anesthesia, Regional Block (interscalene block) Pt an Appropriate Candidate for the Planned Anesthesia: Yes Alternatives and Risks of Anesthesia Discussed w Pt/Guardian: Yes Pt/Guardian Understands and Agrees with Anesthesia Plan: Yes PreAnesthesia Questionnaire HEENT History: Reports: Impaired Vision, Other (See Below) Other HEENT History: wears glasses, has dentures Cardiovascular History: Reports: Afib, CAD, [place], Other (See Below) Other Cardiovascular History: ventricular dystolic dysfunction, mitral regurgitation, [place]--2010 Respiratory History: Reports: Other (See Below) Other Respiratory History: snoring Gastrointestinal History: Reports: Diverticulosis, GERD, Hemorrhoids Genitourinary History: Reports: None BLASTING COAL MINER History: Reports: None Musculoskeletal History: Reports: Osteoporosis Neurological History: Reports: Other (See Below) Other Neuro History: near syncope Psychiatric History: Reports: None Endocrine/Metabolic History: Reports: Obesity/BMI 30+, Vitamin D Deficiency, Other (See Below) Other Endocrine/Metabolic History: hyperparathyroidism Hematologic History: Reports: Iron Deficiency Immunologic History: Reports: None Oncologic (Cancer) History: Reports: None Dermatologic History: Reports: Other (See Below) Other Dermatologic History: rash to left foot - Infectious Disease History Infectious Disease History: Reports: None - Past Surgical History Head Surgeries/Procedures: Reports: None HEENT Surgical History: Reports: Cataract Surgery, Tonsillectomy Cardiovascular Surgical History: Reports: None Respiratory Surgical History: Reports: None GI Surgical History: Reports: Bariatric Procedure, Colonoscopy Female Surgical History: Reports: Tubal Ligation Male Surgical History: Reports: None Endocrine Surgical History: Reports: None Neurological Surgical History: Reports: None Musculoskeletal Surgical History: Reports: Knee Replacement, Shoulder Surgery, Other (See Below) Other Musculoskeletal Surgeries/Procedures:: right rotator cuff repair Oncologic Surgical History: Reports: None Dermatological Surgical History: Reports: None - SUBSTANCE USE Tobacco Use Status *Q: Former Tobacco User Tobacco Use Within Last Twelve Months: No Second Hand Smoke Exposure: No Days Per Week of Alcohol Use: 0 Number of Drinks Per Day: 0 Total Drinks Per Week: 0 Recreational Drug Use History: No - HOME MEDS Home Medications: Home Meds Alendronate Sodium [Fosamax] 70 mg PO SA 06/24/20 [History] Calcium Carbonate [Calcium] 600 mg PO DAILY 06/24/20 [History] Ferrous Sulfate [Iron] 325 mg PO BID 06/24/20 [History] Furosemide [Lasix] 20 mg PO DAILY PRN 06/24/20 [History] Ipratropium [Atrovent 0.03% Nasal Winfred] 1 dose SWATI TID 06/24/20 [History] Metoprolol Succinate 100 mg PO BID 06/24/20 [History] Multivitamin 1 tab PO DAILY 06/24/20 [History] Rivaroxaban [Xarelto] 20 mg PO DAILY 06/24/20 [History] Cyanocobalamin (Vitamin B-12) [Vitamin B-12] 1,000 mcg PO DAILY 12/28/20 [History] Acetaminophen/HYDROcodone [[place] 325-5 MG] 1 - 2 tab PO Q6H PRN #40 tablet 01/05/21 [Rx] Cyclobenzaprine [Flexeril] 10 mg PO BID PRN #20 tab 01/05/21 [Rx] - CURRENT (IN HOUSE) MEDS Current Meds: Current Medications Epinephrine HCl (Epinephrine 1 Mg/Ml 30 Ml Mdv) 3 mg IRR ONETIME AJ Stop: 01/05/21 18:00 Lactated Ringer's (Ringers, Lactated) 1,000 mls @ 125 mls/hr IV ASDIRECTED AJ Stop: 01/05/21 23:00 Lidocaine/Sodium Bicarbonate (Lidocaine 1%/Sod Bicarbonate In Ns 8.4% 1 Ml Syringe) 0.25 ml IDERM ONETIME PRN PRN Reason: Prior to IV Start Stop: 01/05/21 23:00 Sodium Chloride (Sodium Chloride 0.9% 10 Ml Syringe) 10 ml FLUSH ASDIRECTED PRN PRN Reason: Keep Vein Open Stop: 01/05/21 23:00 Discontinued Medications Cefazolin Sodium (Cefazolin 1 Gm Vial) Confirm Administered Dose 2 gm .ROUTE .STK-MED ONE Stop: 01/05/21 07:46 Epinephrine HCl (Epinephrine 1 Mg/Ml Sdv) Confirm Administered Dose 1 mg .ROUTE .STK-MED ONE Stop: 01/05/21 08:41 Fentanyl (Fentanyl 100 Mcg/2 Ml Sdv) Confirm Administered Dose 100 mcg .ROUTE .STK-MED ONE Stop: 01/05/21 07:24 Lidocaine HCl (Xylocaine-Mpf 1%) Confirm Administered Dose 4 mls @ as directed .ROUTE .STK-MED ONE Stop: 01/05/21 07:24 Lactated Ringer's (Ringers, Lactated) Confirm Administered Dose 1,000 mls @ as directed .ROUTE .STK-MED ONE Stop: 01/05/21 07:24 Lidocaine HCl (Xylocaine-Mpf 1%) Confirm Administered Dose 2 mls @ as directed .ROUTE .STK-MED ONE Stop: 01/05/21 08:48 Midazolam HCl (Midazolam 1 Mg/Ml 2 Ml Sdv) Confirm Administered Dose 2 mg .ROUTE .STK-MED ONE Stop: 01/05/21 07:24 Ondansetron HCl (Ondansetron 4 Mg/2 Ml Sdv) Confirm Administered Dose 4 mg .ROUTE .STK-MED ONE Stop: 01/05/21 07:24 Propofol (Propofol 200 Mg/20 Ml Sdv) Confirm Administered Dose 200 mg .ROUTE .STK-MED ONE Stop: 01/05/21 07:26 Rocuronium Emerson (Rocuronium 50 Mg/5 Ml Vial) Confirm Administered Dose 50 mg [facility] Stop: 01/05/21 07:24 Ropivacaine (Ropivacaine 0.5% 5 Mg/Ml 30 Ml Sdv) Confirm Administered Dose 30 ml .ROUTE .[facility] ONE Stop: 01/05/21 08:41
--- NOTE | 2021-01-05 09:30 | PCM.SN.2 ---
- Free Text/Narrative Note: Date: 01/05/2021 Time Out: 906 Start: 906 Stop: 916 Surgical Procedure: Left shoulder video arthroscopy with rotator cuff repair and biceps tenotomy versus tenodesis Diagnosis Left Shoulder OA Current Procedure: Left interscalene block under US guidance for postoperative pain control requested by Dr. Yepez. Patient chart reviewed, risk/benefits discussed with patient, consent obtained. Patient positioned supine, monitors/alarms on, oxygen placed via nasal cannula at 2 LPM. IV sedation administered: Versed 2mg IV, Fentanyl 100mcg IV given in preop prior to block placement. Left shoulder prepped with two chloropreps. Sterile drapes placed with aseptic technique noted. Under US guidance, left subclavian artery visualized along with the left brachial plexus. Plexus followed up to C6 cricoid level, and area localized with 2mls of 1% lidocaine. 22gauge 2 inch stimiplex needle advanced under US with 0.6mV with stimulation of biceps noted. Good stimulation noted with decreased voltage and absent at 0.3mVs. 1ml of Normal Saline injected with loss of stimulation noted to confirm needle not placed intraneurally. Incremental dosing of 5mls with negative aspiration noted prior to each injection of 0.5% ropivacaine with 1:200,000 epinephrine. Total volume=30mls. Please refer to nurses noted for vital signs. Sameer Moscoso CRNA
--- NOTE | 2021-01-05 10:49 | PCM.POSTAN ---
POST ANESTHESIA ASSESSMENT - MENTAL STATUS Mental Status: Alert, Oriented - VITAL SIGNS Vital Signs: Last Vital Signs Temp 36.3 C 01/05/21 08:50 Pulse 86 01/05/21 08:50 Resp 16 01/05/21 08:50 BP 129/84 01/05/21 08:50 Pulse Ox 100 01/05/21 08:50 - RESPIRATORY Respiratory Status: Respiratory Rate WNL, Airway Patent, O2 Saturation Stable, Supplemental Oxygen - CARDIOVASCULAR CV Status: Pulse Rate WNL, Blood Pressure Stable - GASTROINTESTINAL GI Status: No Symptoms - PAIN Pain Score: 0 - POST OP HYDRATION Hydration Status: Adequate & Stable
[2021-01-05] MEDS ORDERED: fentaNYL 100 MCG/2 ML SDV IVPUSH PRN (10:50)
[2021-01-05] MEDS ORDERED: Ondansetron 4 MG/2 ML SDV IVPUSH PRN (10:50)
[2021-01-05] MEDS ORDERED: Acetaminophen/HYDROcodone 325-5 MG Tab PO PRN (11:22)
--- NOTE | 2021-01-10 13:33 | PCM.OPNOTE ---
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
--- NOTE | 2021-01-19 07:19 | OR ---
DATE OF OPERATION: 01/05/2021 SURGEON: Zach Yepez MD OPERATION PERFORMED: Left shoulder video arthroscopy with extensive debridement and biceps tenotomy. PREOPERATIVE DIAGNOSIS: Left shoulder rotator cuff tear and biceps tendinopathy. POSTOPERATIVE DIAGNOSIS: Left shoulder rotator cuff tear and biceps tendinopathy with grade 3/4 chondromalacia of the glenohumeral joint. ANESTHESIA: General endotracheal intubation with regional interscalene block. ANESTHESIA PROVIDER: Nicholas Stanley. GROUP TEACHER: Urszula Grande PA-C. ESTIMATED BLOOD LOSS: Less than 5 mL. COMPLICATIONS: None. CONDITION: Stable. DESCRIPTION OF PROCEDURE: The patient was identified in the preoperative holding area. Proper site was marked and identified by the surgeon. The patient was taken back to the operative theater, where after adequate anesthesia, the patient was placed in the lazy right lateral decubitus position. A wedge was placed posteriorly. The patient was secured to the table. Left upper extremity was then sterilely prepped and draped in the usual sterile fashion. OR time-out was performed. The patient received 2 g IV Ancef. 12 pounds of traction was applied to the left upper extremity. Standard posterior incision was made. Scope trocar was introduced. The patient was noted to have severe grade 3/4 chondromalacia of the glenohumeral joint with loose cartilaginous fragments. The patient was also noted to have severe fraying of the labrum and biceps tenotomy. Anterior portal was then created and a biceps tenotomy was performed and extensive debridement of the chondromalacia as well as the frayed labrum was done at this time. Attention was turned to the subacromial space. The patient had full thickness retracted tears of the supra and infraspinatus, but at this time, secondary to the severe chondromalacia, debridement was done and then the scope trocars were removed. 3-0 nylon suture was used for closure of the incisions. 0.25% Marcaine was injected. The patient was placed in a pillow sling and a sterile soft dressing and sent to the PACU in stable condition. MMODAL /[id number]
== END 2021-01-05 12:38 | disposition home or self-care (01) ==
LOC: JD.SDS 08:46
PROVIDERS: ATTEND Orthopaedic Surgery
DX: M75.122 Complete rotator cuff tear or rupture of left shoulder, not specified as traumatic (principal); M75.22 Bicipital tendinitis, left shoulder; M94.212 Chondromalacia, left shoulder; I25.10 Atherosclerotic heart disease of native coronary artery without angina pectoris; I48.20 Chronic atrial fibrillation, unspecified; E55.9 Vitamin D deficiency, unspecified; E53.8 Deficiency of other specified B group vitamins; M81.0 Age-related osteoporosis without current pathological fracture; Z98.84 Bariatric surgery status; I25.2 Old myocardial infarction; Z85.038 Personal history of other malignant neoplasm of large intestine; Z68.31 Body mass index [BMI] 31.0-31.9, adult; Z88.6 Allergy status to analgesic agent; Z88.8 Allergy status to other drugs, medicaments and biological substances; E66.01 Morbid (severe) obesity due to excess calories; Z79.899 Other long term (current) drug therapy; Z87.891 Personal history of nicotine dependence; Z98.890 Other specified postprocedural states
CPT/HCPCS: 29823; A9270; J0171; J0690; J2250; J2370; J2405; J2704; J2795; J3010; J7120; 01630; 64415; 76942

== ENCOUNTER 2021-07-03 07:30 | Inpatient (IN) | payer BC ==
[~2021-07-03 07:30] MED LIST changes: +Acetaminophen 325 MG Tab PO SCH; -EPINEPHrine 1 MG/ML 30 ML MDV IRR SCH; -EPINEPHrine 1 MG/ML SDV ONE; -Lidocaine 1% 4 ML ONE; +Pregabalin 25 MG Cap PO SCH; -Ropivacaine 0.5% 5 MG/ML 30 ML SDV ONE; +oxyCODONE ER 10 MG TAB.ER PO SCH
--- NOTE | 2021-07-03 07:53 | PCM.PREANE ---
Preanesthetic Assessment - Anesthesia/Transfusion/Family Hx Anesthesia History: Prior Anesthesia Without Reaction Family History of Anesthesia Reaction: No Transfusion History: No Prior Transfusion(s) Intubation History: Unknown - Review of Systems General: No Symptoms Pulmonary: No Symptoms Cardiovascular: Palpitations (Afib, pt states that she does get palpitations and sits down when this happens and they go away), Other Gastrointestinal: Other (hx of gastric bypass, 60+ weight loss, very rare heartburn, uses tums ) Neurological: No Symptoms Other: Reports: Easy Bleeding, Easy Bruising - Physical Assessment NPO Status Date: 07/02/21 NPO Status Time: 21:30 ASA Class: 5E Emergency Airway Class: Mallampati = 2 Dentition: Reports: Normal Dentition (lower), Edentulous Thyro-Mental Finger Breadths: 3 Mouth Opening Finger Breadths: 3 ROM/Head Extension: Full Lungs: Clear to Auscultation, Normal Respiratory Effort Cardiovascular: Regular Rate, Irregular Rhythm - Allergies Allergies/Adverse Reactions: Allergies Allergy/AdvReac Type Severity Reaction Status Date / Time [id number] Reductase Allergy Other Verified 06/30/21 11:26 Inhibitor [Kkgivfm-Erl-Hcq Reductase Inhibitor] - Blood Blood Available: No Product(s) Available: None - Anesthesia Plan Beta Anthony: Metoprolol Med Last Dose Date: 07/03/21 Med Last Dose Time: 04:30 - Acknowledgements Anesthesia Type Planned: General Anesthesia Pt an Appropriate Candidate for the Planned Anesthesia: Yes Alternatives and Risks of Anesthesia Discussed w Pt/Guardian: Yes Pt/Guardian Understands and Agrees with Anesthesia Plan: Yes PreAnesthesia Questionnaire HEENT History: Reports: Impaired Vision, Other (See Below) Other HEENT History: wears glasses, has dentures Cardiovascular History: Reports: Afib, CAD, PA, Other (See Below) Other Cardiovascular History: ventricular dystolic dysfunction, mitral regurgitation, PA- Respiratory History: Reports: Other (See Below) Other Respiratory History: snoring Gastrointestinal History: Reports: Diverticulosis, GERD, Hemorrhoids Genitourinary History: Reports: None 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 Musculoskeletal History: Reports: Arthritis, Osteoporosis Neurological History: Reports: Other (See Below) Other Neuro History: near syncope Psychiatric History: Reports: None Endocrine/Metabolic History: Reports: Obesity/BMI 30+, Vitamin D Deficiency, Other (See Below) Other Endocrine/Metabolic History: hyperparathyroidism Hematologic History: Reports: Iron Deficiency Immunologic History: Reports: None Oncologic (Cancer) History: Reports: None Dermatologic History: Reports: Other (See Below) Other Dermatologic History: rash to left foot - Infectious Disease History Infectious Disease History: Reports: None - Past Surgical History Head Surgeries/Procedures: Reports: None HEENT Surgical History: Reports: Cataract Surgery, Tonsillectomy Cardiovascular Surgical History: Reports: None Respiratory Surgical History: Reports: None GI Surgical History: Reports: Bariatric Procedure, Colonoscopy Female Surgical History: Reports: Tubal Ligation Male Surgical History: Reports: None Endocrine Surgical History: Reports: None Neurological Surgical History: Reports: None Musculoskeletal Surgical History: Reports: Knee Replacement, Shoulder Surgery, Other (See Below) Other Musculoskeletal Surgeries/Procedures:: right rotator cuff repair Oncologic Surgical History: Reports: None Dermatological Surgical History: Reports: None - SUBSTANCE USE Tobacco Use Status *Q: Former Tobacco User Recreational Drug Use History: No - HOME MEDS Home Medications: Home Meds Alendronate Sodium [Fosamax] 70 mg PO SA 06/24/20 [History] Calcium Carbonate [Calcium] 600 mg PO DAILY 06/24/20 [History] Ferrous Sulfate [Iron] 325 mg PO DAILY 06/24/20 [History] Furosemide [Lasix] 20 mg PO DAILY PRN 06/24/20 [History] Ipratropium [Atrovent 0.03% Nasal [place]] 1 dose SWATI TID 06/24/20 [History] Metoprolol Succinate 100 mg PO BID 06/24/20 [History] Rivaroxaban [Xarelto] 20 mg PO DAILY 06/24/20 [History] Cyanocobalamin (Vitamin B-12) [Vitamin B-12] 1,000 mcg PO DAILY 12/28/20 [History] Cholecalciferol (Vitamin D3) [Vitamin D3] 5,000 unit PO DAILY 06/30/21 [History] Cyclobenzaprine [Flexeril] 10 mg PO BID PRN #20 tab 07/03/21 [Rx] oxyCODONE 5 - 10 mg PO Q4H PRN #40 tab 07/03/21 [Rx] - CURRENT (IN HOUSE) MEDS Current Meds: Current Medications Acetaminophen (Acetaminophen 325 Mg Tab) 975 mg PO ONETIME AJ Stop: 07/03/21 16:00 Lactated Ringer's (Ringers, Lactated) 1,000 mls @ 125 mls/hr IV ASDIRECTED AJ Stop: 07/03/21 23:00 Lidocaine/Sodium Bicarbonate (Lidocaine 1%/Sod Bicarbonate In Ns 8.4% 1 Ml Syringe) 0.25 ml IDERM ONETIME PRN PRN Reason: Prior to IV Start Stop: 07/03/21 18:00 Oxycodone HCl (Oxycodone Er 10 Mg Tab.Er) 10 mg PO ONETIME AJ Stop: 07/03/21 16:00 Pregabalin (Pregabalin 25 Mg Cap) 50 mg PO ONETIME AJ Stop: 07/03/21 16:00 Sodium Chloride (Sodium Chloride 0.9% 10 Ml Syringe) 10 ml FLUSH ASDIRECTED PRN PRN Reason: Keep Vein Open Stop: 07/03/21 18:00 Discontinued Medications Cefazolin Sodium (Cefazolin 1 Gm Vial) Confirm Administered Dose 2 gm .ROUTE .STK-MED ONE Stop: 07/03/21 07:08 Fentanyl (Fentanyl 100 Mcg/2 Ml Sdv) Confirm Administered Dose 100 mcg .ROUTE .STK-MED ONE Stop: 07/03/21 07:08 Lactated Ringer's (Ringers, Lactated) Confirm Administered Dose 1,000 mls @ as directed .ROUTE .STK-MED ONE Stop: 07/03/21 07:08 Midazolam HCl (Midazolam 1 Mg/Ml 2 Ml Sdv) Confirm Administered Dose 2 mg .ROUTE .STK-MED ONE Stop: 07/03/21 07:08 Ondansetron HCl (Ondansetron 4 Mg/2 Ml Sdv) Confirm Administered Dose 4 mg .ROUTE .STK-MED ONE Stop: 07/03/21 07:08 Propofol (Propofol 200 Mg/20 Ml Sdv) Confirm Administered Dose 200 mg .ROUTE .STK-MED ONE Stop: 07/03/21 07:08 Rocuronium Chazy (Rocuronium 50 Mg/5 Ml Vial) Confirm Administered Dose 50 mg .ROUTE .STK-MED ONE Stop: 07/03/21 07:08
[2021-07-03] MEDS ORDERED: EPINEPHrine 1 MG/ML SDV ONE (08:05)
[2021-07-03] MEDS ORDERED: Ropivacaine 0.5% 5 MG/ML 30 ML SDV ONE (08:05)
[2021-07-03] MEDS ORDERED: Vancomycin 1 GM SDV ONE (08:56)
[2021-07-03] MEDS ORDERED: Bupivacaine 0.5% 30 ML SDV ONE (08:56)
[2021-07-03] MEDS ORDERED: Bupivacaine 0.25% 10 ML SDV ONE (08:57)
--- NOTE | 2021-07-03 09:10 | PCM.SN.2 ---
- Free Text/Narrative Note: Date: 07/03/2021 Time out:835 Start time:835 End time:[address] left interscalene block with ultrasound guidance and nerve stimulator for post op pain control per Dr. Yepez and patient. Preop diagnosis left shoulder pain. Procedure is left reverse total shoulder arthroplasty Informed consent obtained. Monitors and O2 placed at 2 l per n/c. Versed 2 mg and Fentanyl 50 mcg given IV total. Patient awake and talking during procedure. Left neck and clavicle area prepped with chlorprep. Sterile gloves, hat and mask worn. US probe with sterile sleeve placed midclavicular with ID of brachial plexus and subclavian artery. Brachial plexus followed cephalad to level of cricoid. Lidocaine 1% local anesthetic injected prior to block placement. 22 g 2 inch stimplex needle advanced with US guidance to brachial plexus. Positive forearm response at .4mA with nerve stimulator. Ceased with saline injection. Ropivacaine 0.5% with epi 1:200,000 injected in increments of 5 ml with negative aspiration before each injection to a total of 30 ml. Good spread of local anesthetic seen on US. Patient tolerated procedure well. Vitals stable with no complaints. See vital signs on nurses notes. Sameer Moscoso CRNA Time Documentation
[2021-07-03] MEDS ORDERED: ePHEDrine 50 MG/ML SDV ONE (09:51)
[2021-07-03] MEDS ORDERED: fentaNYL 100 MCG/2 ML SDV IVPUSH PRN (10:46)
[2021-07-03] MEDS ORDERED: HYDROmorphone 0.5 MG/0.5 ML Syringe IVPUSH PRN (10:46)
[2021-07-03] MEDS ORDERED: Ondansetron 4 MG/2 ML SDV IVPUSH PRN (10:46)
--- NOTE | 2021-07-03 10:48 | PCM.POSTAN ---
POST ANESTHESIA ASSESSMENT - MENTAL STATUS Mental Status: Alert, Oriented - VITAL SIGNS Vital Signs: Last Vital Signs Temp 36.6 C 07/03/21 07:35 Pulse 79 07/03/21 07:35 Resp 16 07/03/21 07:35 BP 116/90 07/03/21 07:35 Pulse Ox 95 07/03/21 07:35 - RESPIRATORY Respiratory Status: Respiratory Rate WNL, Airway Patent, O2 Saturation Stable, Supplemental Oxygen - CARDIOVASCULAR CV Status: Pulse Rate WNL, Blood Pressure Stable - GASTROINTESTINAL GI Status: No Symptoms - PAIN Pain Score: 0 - POST OP HYDRATION Hydration Status: Adequate & Stable
--- NOTE | 2021-07-03 11:03 | CR ---
Left shoulder: 2 views of the left shoulder were obtained utilizing C-arm device. Study shows placement of a left shoulder prosthesis. Components are aligned. Fluoroscopy time is given is 3.0 seconds. Impression: 1. Procedural study as described above. Diagnostic code #2
--- NOTE | 2021-07-03 11:31 | CR ---
Left shoulder: Frontal view of the left shoulder was obtained. Comparison: Prior operative study performed earlier on the same day (10:04 AM). Left shoulder prosthesis is seen of the reverse type. Components are aligned. Underlying bony structures are intact. Scattered degenerative change is seen within the thoracic spine. Impression: 1. Satisfactory postop surgical study of reverse left shoulder prosthesis. 2. Scattered degenerative change is seen within the thoracic spine. Diagnostic code #2
--- NOTE | 2021-07-03 12:05 | PCM48HPAN ---
Post Anesthesia Note - EVALUATION WITHIN 48HRS OF ANESTHETIC Vital Signs in Normal Range: Yes Patient Participated in Evaluation: Yes Respiratory Function Stable: Yes Airway Patent: Yes Cardiovascular Function Stable: Yes Hydration Status Stable: Yes Pain Control Satisfactory: Yes Nausea and Vomiting Control Satisfactory: Yes Mental Status Recovered: Yes Vital Signs: Last Vital Signs Temp 36.4 C 07/03/21 11:30 Pulse 60 07/03/21 11:30 Resp 15 07/03/21 11:30 BP 98/58 L 07/03/21 11:30 Pulse Ox 98 07/03/21 11:30
--- NOTE | 2021-07-16 17:38 | PCM.OPNOTE ---
- General Post-Op/Procedure Note Date of Surgery/Procedure: 07/03/21 Operative Procedure(s): left reverse total shoulder arthroplasty Pre Op Diagnosis: left shoulder rotator cuff tear arthropathy Post-Op Diagnosis: Same Anesthesia Technique: General ET Tube, Regional Block Primary Surgeon: Zach Yepez Anesthesia Provider: Mimi Cotton Head Of Art: Urszula Grande Head Of Art: Leann Burnham EBL in mLs: 200 Complications: None Condition: Good Free Text/Narrative:: 12 stem 32+6 glenosphere 4mm poly 28 baseplate
--- NOTE | 2021-07-16 18:46 | OR ---
DATE OF OPERATION: 07/03/2021 SURGEON: Zach Yepez MD OPERATION PERFORMED: Left reverse total shoulder arthroplasty. PREOPERATIVE DIAGNOSIS: Left shoulder rotator cuff tear arthropathy. POSTOPERATIVE DIAGNOSIS: Left shoulder rotator cuff tear arthropathy. ANESTHESIA: General endotracheal intubation with regional interscalene block. ANESTHESIA PROVIDER: Mimi Cotton. ASSISTANTS: Urszula Grande PA-C, and Leann Burnham LPN. ESTIMATED BLOOD LOSS: 200 mL. COMPLICATIONS: None. CONDITION: Stable. IMPLANTS: 1. [place] size 12 reverse humeral stem. 2. Donny size 32 + 6 mm glenosphere. 3. [place] size 4 mm polyethylene with 2 mm reverse thickness. 4. Donny size 28 mm baseplate. DESCRIPTION OF PROCEDURE: The patient was identified in the preoperative holding area. Proper site was marked and identified by the surgeon. The patient was taken back to the operating theater, where after adequate anesthesia, the patient's left upper extremity was sterilely prepped and draped in the usual sterile fashion. OR time-out was performed. The patient received 2 g of IV Ancef. The patient was placed in a reverse Trendelenburg position. At this time, standard deltopectoral incision was made. This was taken down to the cephalic vein. Cephalic vein was identified. Deltopectoral interval was identified. The cephalic vein was retracted laterally with the deltoid. Adhesions were removed. The clavipectoral fascia was incised and the conjoined tendon was retracted medially. Anterior humeral circumflex vessels were then ligated. Biceps tendon was then identified. A #2 FiberWire was then used for biceps tenodesis in the pectoralis. Biceps tendon was then resected approximately all the way back to the level of the glenoid. Peel down of the subscapularis tendon was then done and humeral head was dislocated. Humeral head cut was then completed and was found to be adequate. All osteophytes were removed. Posterior and anterior glenoid retractors were placed. Circumferential removal of labrum as well as partial capsulectomy was done at this time. Guide pin was then placed in a center-center position with roughly 5 degrees inferior tilt. A 28 mm reamer was then utilized back to a good smile sign on the glenoid. Guide pin was removed. The depth was measured and a 28 mm baseplate was placed with a central compression screw. It had adequate bite. Inferior and superior locking screws were then placed in divergent fashion and the 32 + 6 mm glenosphere was impacted into place. Attention was turned to the humerus. Starter awl was placed down the canal. Starting with a size 10 broach, I was able to broach up to a size 12, which was found to be rotationally and vertically stable. Trial implants were then placed with a +4 and 2 mm construct for a total of 6. This was found to have adequate tension on the deltoid and the conjoined tendon with full range of motion and no signs of instability. C-arm fluoroscopy was then brought in and found the implants to be in proper position. Trial implants were then removed and the stem as well as components were constructed on the back table. The size 12 stem and a 6 mm construct with 2 and +4 mm poly. This was then impacted into place into the humerus. Shoulder then was relocated. C-arm fluoroscopy was then again utilized. There was no fracture noted. All implants were in anatomic position. 1 L pulse lavage irrigation with Ancef was irrigated through the shoulder along with 400 mL Irrisept irrigation. Topical tranexamic acid and vancomycin powder applied. 2-0 Vicryl was used subcutaneously, and Prineo was used for skin closure. The patient tolerated the procedure well and sent to PACU in stable condition. UCHE /[id number]
== END 2021-07-03 13:25 | disposition home or self-care (01) | DRG 322 ==
LOC: JD.MS 07:30 → JD.OB 07:58
PROVIDERS: ADMIT Orthopaedic Surgery; ATTEND Orthopaedic Surgery
PROC: 0RRK00Z Replacement of Left Shoulder Joint with Reverse Ball and Socket Synthetic Substitute, Open Approach (ICD-10-PCS; principal; 2021-07-03)
DX: M19.012 Primary osteoarthritis, left shoulder (principal); I48.11 Longstanding persistent atrial fibrillation; Z98.84 Bariatric surgery status; M81.0 Age-related osteoporosis without current pathological fracture; E55.9 Vitamin D deficiency, unspecified; D50.9 Iron deficiency anemia, unspecified; Z79.899 Other long term (current) drug therapy; Z88.8 Allergy status to other drugs, medicaments and biological substances; Z96.653 Presence of artificial knee joint, bilateral; Z98.51 Tubal ligation status; Z96.611 Presence of right artificial shoulder joint; Z87.891 Personal history of nicotine dependence
CPT/HCPCS: 01638; 36415; 64447; 73020-26-LT; 73020-LT; 76000; 76000-26; 76942; 80053; 85610; 85730; 97161-GP; A9270-GY; C1713; C1769; C1776; J0171; J0690; J2250; J2370; J2405; J2704; J2710; J2795; J3010; J3370; J3490; J7120

== ENCOUNTER 2021-07-04 08:39 | Emergency (ER) | payer BC | END 2021-07-04 09:30 | disposition left against medical advice (07) | LOC: JD.ED 08:39 | DX: Z53.21 Procedure and treatment not carried out due to patient leaving prior to being seen by health care provider (principal) | CPT/HCPCS: 81001; 99284-25 ==